=== PATIENT | male | born 1965 | race Two or more races ===

== ENCOUNTER 2020-07-01 07:08 | Day surgery (SDC) | payer OTHER ==
[~2020-07-01 07:08] MED LIST: LOSARTA PO
[2020-07-01] MEDS ORDERED: PERCOCET 5-3251 EACH PO (16:29)
[2020-07-01] MEDS ORDERED: COLACE100 MG PO (16:29)
[2020-07-01] MEDS ORDERED: NEURONTIN600 M1 PO (16:29)
== END 2020-07-01 20:45 | disposition home or self-care (01) ==
LOC: CIR.AMB 07:08
PROVIDERS: ATTEND Surgery
DX: K40.90 Unilateral inguinal hernia, without obstruction or gangrene, not specified as recurrent (principal); D17.6 Benign lipomatous neoplasm of spermatic cord; Z20.822 Contact with and (suspected) exposure to COVID-19

== ENCOUNTER 2020-07-05 16:01 | Emergency (ER) | payer OTHER ==
[~2020-07-05] VITALS: Ht 177.8 cm; Wt 99.8 kg
[~2020-07-05 16:01] MED LIST changes: +COLACE100 MG PO; +NEURONTIN600 M1 PO; +PERCOCET 5-3251 EACH PO
[2020-07-05] MEDS ORDERED: COZAAR50 MG PO (16:20)
== END 2020-07-05 18:59 | disposition home or self-care (01) ==
LOC: ER 16:01
DX: R42 Dizziness and giddiness (principal); R51.9 Headache, unspecified; Z98.890 Other specified postprocedural states